=== PATIENT | male | born 1960 | race Caucasian/White ===

== ENCOUNTER 2017-05-29 18:58 | Emergency (ER) | payer BC ==
[2017-05-29 21:34] VITALS: BP 149/90
--- NOTE | 2017-05-30 01:51 | ER ---
HISTORY OF PRESENT ILLNESS: A 56-year-old male here with complaints of lower right quadrant abdominal pain that started last night. He thought it was from lifting some heavy rims or weight off a tire of a tractor. The patient states that Tuesday he actually felt sick. He did not come in for evaluation. He felt better by Tuesday morning and thought he was doing okay until tonight after he ate a big supper. His belly hurt a little bit more. He decided he should come in for evaluation. The patient does not feel feverish today and has no problems with nausea. He has had a few episodes of loose stools. PAST MEDICAL HISTORY: He is healthy. SURGICAL HISTORY: None. OBJECTIVE: GENERAL APPEARANCE: The patient is awake and alert. He is smiley and pleasant. VITAL SIGNS: Reviewed. He is afebrile, pulse is 118, blood pressure 153/84. LUNGS: On physical exam, lungs are clear. CARDIAC: Heart sounds distinct without murmurs. ABDOMEN: Soft. There is mild tenderness in the lower right quadrant with palpation. No rebound tenderness at this time. Bowel sounds are present. SKIN: Warm and dry. LAB AND X-RAY: CBC shows white count of 9.1, it is normal. Comprehensive metabolic panel shows a BUN of 15, creatinine 1.52, GFR 48. Alkaline phosphatase is a little elevated at 124. CT of the abdomen and pelvis shows acute appendicitis and a solitary right kidney, which the patient did not know about. DIAGNOSIS: Acute appendicitis. TREATMENT PLAN: I did contact the surgeon at [facility], Dr. Rogers, who accepted the patient. He will travel down by private car with his brother driving to the emergency room where he will be admitted for surgery tomorrow morning. He is to be n.p.o. I advised the patient he could take small amounts of water between now and midnight but nothing after midnight. The patient rates pain at mild at this point in time and agrees to the treatment plan. CRS/MODL /[id number]
--- NOTE | 2017-05-30 02:25 | CT ---
UNENHANCED ABDOMEN AND PELVIC CT, 05/29/17 Multislice acquisition through the abdomen and pelvis without IV or oral contrast was performed. No priors. Motion artifact has degraded image quality. There are atelectatic changes of he dependent portion of both lung bases and in both lower lungs. There are linear densities in both lung bases consistent with linear atelectasis or fibrosis. There is a small hiatal hernia. The unenhanced liver appears normal. The gallbladder is contracted, but otherwise appears normal. The spleen appears normal. The pancreas appears normal. The patient is status post left nephrectomy. The right kidney appears normal. No nephrocalcinosis or nephrolithiasis. No hydronephrosis or hydroureter. The bladder is partially fluid filled and appears normal. The prostate is enlarged. There are calcifications within the prostate consistent with chronic prostatitis. The appendix is abnormal. The appendix is dilated. It measures 10 mm in outside diameter. There is periappendiceal fat stranding. The findings are consistent with appendicitis. No evidence of a periappendiceal abscess. There is mild diverticulosis of the descending and sigmoid colon. No evidence of diverticulitis. There is an umbilical hernia containing fat. No free air. No free fluid. No dilated loops of bowel. No adenopathy. No aortic aneurysm. IMPRESSION: Abnormal appendix consistent with appendicitis. No evidence of periappendiceal abscess. No free air. The patient's health care provider was notified of the findings by telephone and by [facility] preliminary radiology report. [id number] [facility]
== END 2017-05-29 22:25 ==
LOC: LB.ED 18:58
DX: K35.80 Unspecified acute appendicitis (principal)
CPT/HCPCS: 36415; 74176; 80053; 85025; 99285-25